=== PATIENT | male | born 1990 ===

== ENCOUNTER → 2019-03-16 | Outpatient (CLI) | payer BC ==
[~2019-03-16] MED LIST: AZIT250 PO; CEPH500 PO; Ery-Tab250 MG PO; Flonase 0.05% N16 GM; IBUP600 PO; LIDO2L TOP; METPRE4DP PO; Norco 5-325 Ta1 EACH PO; Prednisone20 MG PO; SULTRIDS PO; Zithromax250 MG PO; Zofran Odt4 MG SL
[2019-03-16 11:32] LABS: BASOPHILS ABSOLUTE AUTO 0.02 K/mm3 (0.00-0.23); BASOPHILS PERCENT AUTO 0 % (0-2); EOSINOPHILS ABSOLUTE AUTO 0.01 K/mm3 (0.00-0.68); EOSINOPHILS PERCENT AUTO 0 % (0-6); Hematocrit 44.5 % (37.0-53.0); Hemoglobin 15.5 g/dL (13.5-17.5); IMMATURE GRAN ABSOLUTE AUTO 0.02 K/mm3 (0.00-0.10); IMMATURE GRAN PERCENT AUTO 0 % (0-1); LYMPHOCYTES PERCENT AUTO 9 % (21-46); MONOCYTES ABSOLUTE AUTO 0.85 K/mm3 (0.16-1.47); MONOCYTES PERCENT AUTO 11 % (4-13); Mean Corpuscular HGB 32.2 pg (26.0-34.0); Mean Corpuscular HGB Conc 34.8 g/dL (31.5-36.5); Mean Corpuscular Volume 93 fL (80-100); Mean Platelet Volume 9.2 fL (9.1-12.4); NEUTROPHILS ABSOLUTE AUTO 6.41 K/mm3 (1.96-9.15); NEUTROPHILS PERCENT AUTO 80 % (41-73); Platelet Count 224 K/mm3 (150-400); RDW Coefficient Variation 12.1 % (11.7-14.2); Red Blood Cell Count 4.81 M/mm3 (4.30-5.90); White Blood Cell Count 8.01 K/mm3 (4.00-11.30)
[2019-03-16 12:34] LABS: Source, Urine Clean Catch
[2019-03-16 13:03] LABS: Bacteria Not Seen /hpf; Mucus Heavy (0-Heavy); Red Blood Cells, Urine 25-50 /hpf (0-2); Squamous Epithelial Cells Rare /hpf (Few); White Blood Cells, Urine Rare /hpf (0-5)
[2019-03-16 13:04] LABS: Renal Epithelial Rare /hpf (0-Rare)
== END | disposition home or self-care (01) ==
LOC: LAB EV 11:28 → LAB SHORT 11:28
PROVIDERS: Physician Assistant
DX: R31.9 Hematuria, unspecified (principal); R53.83 Other fatigue
CPT/HCPCS: 81015; 85025; 87086

== ENCOUNTER 2019-11-18 01:28 | Emergency (ER) | payer SELFPAY ==
[~2019-11-18] VITALS: Ht 172.7 cm; Wt 70.3 kg
[2019-11-18 02:11] LABS: Source, Urine Clean Catch
[2019-11-18 02:14] LABS: Bilirubin, Urine Neg (Neg); Blood, Urine 3+ (Neg); Glucose Qualitative, Urine Neg (Neg); Ketones, Urine Neg (Neg); Leukocyte Esterase, Urine Neg (Neg); Nitrite, Urine Neg (Neg); Protein, Urine Neg (Neg); Specific Gravity, Urine 1.015 (1.003-1.022); Urobilinogen, Urine 1+ (Normal)
[2019-11-18 02:18] LABS: Appearance, Urine Clear (Clear); Color, Urine Yellow (P-Yellow)
[2019-11-18 02:24] LABS: Amorphous Light (0-Heavy); Bacteria Rare /hpf; Mucus Light (0-Heavy); Red Blood Cells, Urine 0-2 /hpf (0-2); Squamous Epithelial Cells Rare /hpf (Few)
[2019-11-20 05:06] LABS: CHLAMYDIA TRACHOMATIS, NAA Positive (Negative); NEISSERIA GONORRHOEAE, NAA Negative (Negative)
== END 2019-11-18 03:10 | disposition home or self-care (01) ==
LOC: ER 01:28
PROVIDERS: Emergency Medicine
DX: Z20.2 Contact with and (suspected) exposure to infections with a predominantly sexual mode of transmission (principal); Z88.0 Allergy status to penicillin
CPT/HCPCS: 81001; 87086; 96372; 99283-25; J0696

== ENCOUNTER 2021-04-04 05:09 | Emergency (ER) | payer SELFPAY ==
[~2021-04-04] VITALS: Ht 177.8 cm; Wt 72.6 kg
== END 2021-04-04 07:03 | disposition home or self-care (01) ==
LOC: ER 05:09
DX: J06.9 Acute upper respiratory infection, unspecified (principal); M77.8 Other enthesopathies, not elsewhere classified
CPT/HCPCS: 87081; 87147; 87430; 96372; 99283; J1885

== ENCOUNTER 2021-04-05 00:55 | Emergency (ER) | payer SELFPAY ==
[~2021-04-05] VITALS: Ht 177.8 cm; Wt 74.8 kg
[2021-04-05 04:14] LABS: SARS-Cov-2 (COVID-19) PCR, MMC NEGATIVE (NEGATIVE)
== END 2021-04-05 05:25 | disposition home or self-care (01) ==
LOC: ER 00:55
PROVIDERS: Emergency Medicine
DX: J06.9 Acute upper respiratory infection, unspecified (principal); Z88.0 Allergy status to penicillin; Z87.891 Personal history of nicotine dependence; Z20.822 Contact with and (suspected) exposure to COVID-19
CPT/HCPCS: 99283; A9270; U0004